=== PATIENT | male | born 1990 | race African-American/Black ===

== ENCOUNTER 2024-04-13 13:31 | Emergency (ER) | payer MEDICAID ==
[~2024-04-13] VITALS: Ht 172.7 cm; Wt 70.0 kg
[2024-04-13 13:38] VITALS: O2SAT 97
[2024-04-13 13:55] VITALS: TEMP 97.9
[2024-04-13 14:19] LABS: BASOPHILS % 0.6 % (0.0-2.0); EOSINOPHILS % 2.3 % (0.0-5.0); HEMATOCRIT. 43.5 % (42.0-52.0); HEMOGLOBIN. 14.7 g/dL (14.0-18.0); LYMPHOCYTES % 41.8 % (20.0-50.0); MEAN CORPUSCULAR HEMOGLOBIN 29.9 pg (28.0-32.0); MEAN CORPUSCULAR HGB CONC 33.9 g/dL (31.0-37.0); MEAN CORPUSCULAR VOLUME 88.3 fL (80.0-94.0); MEAN PLATELET VOLUME 8.3 fl (7.4-10.4); NEUTROPHILS % 50.3 % (40.0-76.0); PLATELET 298 x1000/uL (130-400); RED BLOOD CELL COUNT 4.93 mill/uL (4.7-6.1); WHITE BLOOD COUNT 4.8 x1000/uL (4.5-11.0)
[2024-04-13] MEDS: ONDANSETRON HCL 4MG/2ML INJ IV STA (14:23)
[2024-04-13] MEDS: SODIUM CHLORIDE 0.9% 1,000 ML IV ONE (14:23)
[2024-04-13 14:26] LABS: CALCIUM 8.7 mg/dL (8.7-10.4); CARBON DIOXIDE 24 mEq/L (21-32); CHLORIDE 107 mEq/L (98-107); POTASSIUM 4.7 mEq/L (3.5-5.1); SODIUM 138 mEq/L (136-145)
[2024-04-13 14:31] LABS: CREATININE 0.7 mg/dL (0.6-1.3)
[2024-04-13 14:32] LABS: ETHANOL BLOOD 42 mg/dL (<10); GLUCOSE 104 mg/dL (70-105); UREA NITROGEN BLOOD 9 mg/dL (9-23)
[2024-04-13 14:33] LABS: ALANINE AMINOTRANSFERASE 61 IU/L (10-49); ALBUMIN 4.7 g/dL (3.2-4.8); ASPARTATE AMINOTRANSFERASE 56 IU/L (<34); PROTEIN TOTAL 7.5 g/dL (6.0-8.3)
[2024-04-13 14:34] LABS: BILIRUBIN TOTAL 0.3 mg/dL (0.1-1.0); PHOSPHORUS 2.4 mg/dL (2.5-4.9)
[2024-04-13 14:39] LABS: BILIRUBIN DIRECT < 0.1 mg/dL (<=3.0)
[2024-04-13] MEDS: CHLORDIAZEPOXIDE 25MG CAPSULE PO ONE (15:38)
[2024-04-13] MEDS ORDERED: TUSSL MT (16:06)
[2024-04-13 16:44] VITALS: BP 120/76; PULSE 108; RESP 15
== END 2024-04-13 17:08 | disposition home or self-care (01) ==
LOC: ER 14:16
DX: F10.129 Alcohol abuse with intoxication, unspecified (principal); F41.9 Anxiety disorder, unspecified; I49.9 Cardiac arrhythmia, unspecified; Y90.2 Blood alcohol level of 40-59 mg/100 ml
CPT/HCPCS: 80076; 80048; 80320; 83735; 84100; 85025; 36415; 71045; 93005; 96374; 99285; J2405; J7030; Z7610; G0480